=== PATIENT | male | born 1960 | race Caucasian/White ===

== ENCOUNTER 2017-07-30 17:12 | Emergency (ER) | payer BC ==
[2017-07-30 17:33] VITALS: BP 129/77
[2017-07-30] MEDS ORDERED: Sodium Chloride 0.9% 10 ML Syringe FLUSH PRN (17:55)
[2017-07-30 18:37] LABS: ANION GAP 11.8; CHLORIDE,CL 99 mmol/L (101-111); SODIUM,NA 133 mmol/L (135-145)
[2017-07-30] MEDS ORDERED: MVI, Adult with Vitamin K 10 ML, Folic Acid 1 MG, Thiamine 100 MG in Lactated Ringers 1... IV ONE ×4 (18:53)
--- NOTE | 2017-07-30 19:06 | EDM.PDOC ---
Scribed by Lilian Grey 07/30/17 1906 for Dewayne Nixon MD <Nora Cr - Last Filed: 07/30/17 20:19> ED HPI GENERAL MEDICAL PROBLEM - General Chief Complaint: Neurological Problem Stated Complaint: [id number], Time Seen by Provider: 07/30/17 17:30 - Related Data Allergies Allergy/AdvReac Type Severity Reaction Status Date / Time amoxicillin [Amoxicillin] Allergy Nausea and Verified 07/30/17 17:25 Vomiting Home Meds: Home Meds Multivitamin [Multi Vitamin Daily] 1 tab PO DAILY 06/28/13 [History] Aspirin [Patricia Chewable] 81 mg PO DAILY 10/30/14 [History] Course - Vital Signs Last Recorded V/S: Last Vital Signs Temp 36.2 C 07/30/17 17:25 Pulse 78 07/30/17 17:25 Resp 18 07/30/17 17:25 BP 129/77 07/30/17 17:25 Pulse Ox 97 07/30/17 17:25 Orthostatic Blood Pressure [ 109/76 Standing] Orthostatic Blood Pressure [ 123/78 Sitting] Orthostatic Blood Pressure [ 113/72 Supine] - Orders/Labs/Meds Labs: Laboratory Tests 07/30/17 07/30/17 07/30/17 Range/Units 18:02 18:02 18:05 WBC 8.2 (5.0-10.0) 10^3/uL RBC 4.62 (4.6-6.2) 10^6/uL Hgb 16.3 (14.0-18.0) g/dL Hct 47.1 (40.0-54.0) % MCV 101.9 H (80-100) fL MCH 35.3 H (27.0-34.0) pg MCHC 34.6 (33.0-35.0) g/dL Plt Count 229 (150-450) 10^3/uL Neut % (Auto) 58.3 (42.2-75.2) % Lymph % (Auto) 26.6 (20.5-50.1) % [place] % (Auto) 13.0 H (2-8) % Eos % (Auto) 1.9 (1.0-3.0) % Baso % (Auto) 0.2 (0.0-1.0) % PT (9.0-12.0) SEC INR (0.9-1.2) APTT (22.0-34.0) SEC Sodium (135-145) mmol/L Potassium (3.6-5.0) mmol/L Chloride (101-111) mmol/L Carbon Dioxide (21.0-31.0) mmol/L Anion Gap BUN (7-18) mg/dL Creatinine (0.6-1.3) mg/dL Est Cr Clr Drug Dosing mL/min Estimated GFR (MDRD) BUN/Creatinine Ratio Glucose (74-105) mg/dL Calcium (8.4-10.2) mg/dl Magnesium (1.8-2.5) mg/dL Total Bilirubin (0.2-1.0) mg/dL GGT (7-64) IU/L AST (10-42) IU/L ALT (10-60) IU/L Alkaline Phosphatase (42-121) IU/L Ammonia (11-35) umol/L Total Protein (6.7-8.2) g/dl Albumin (3.2-5.5) g/dl Globulin Albumin/Globulin Ratio TSH, Ultra Sensitive (0.45-5.33) uIu/mL Urine Color Yellow (YELLOW) Urine Appearance Clear (CLEAR) Urine pH 6.0 (5.0-9.0) Ur Specific [place] <= 1.005 (1.005-1.030) Urine Protein Negative (NEGATIVE) Urine Glucose (UA) Negative (NEGATIVE) Urine Ketones Negative (NEGATIVE) Urine Occult Blood Trace-intact H (NEGATIVE) Urine Nitrite Negative (NEGATIVE) Urine Bilirubin Negative (NEGATIVE) Urine Urobilinogen 0.2 (0.2-1.0) mg/dL Ur Leukocyte Esterase Negative (NEGATIVE) Urine RBC Not seen /HPF Urine WBC Not seen (0-5/HPF) /HPF Ur Epithelial Cells Rare /HPF Urine Bacteria Rare (0-FEW/HPF) /HPF Urine Opiates Screen Negative (NEGATIVE) Ur Oxycodone Screen Negative (NEGATIVE) Urine Methadone Screen Negative (NEGATIVE) Ur Barbiturates Screen Negative (NEGATIVE) U Tricyclic Antidepress Negative (NEGATIVE) Ur Phencyclidine Scrn Negative (NEGATIVE) Ur Amphetamine Screen Negative (NEGATIVE) U Methamphetamines Scrn Negative (NEGATIVE) Urine MDMA Screen Negative (NEGATIVE) U Benzodiazepines Scrn Negative (NEGATIVE) Urine Cocaine Screen Negative (NEGATIVE) U Marijuana (THC) Screen Negative (NEGATIVE) Ethyl Alcohol mg/dL 07/30/17 07/30/17 07/30/17 Range/Units 18:05 18:05 18:05 WBC (5.0-10.0) 10^3/uL RBC (4.6-6.2) 10^6/uL Hgb (14.0-18.0) g/dL Hct (40.0-54.0) % MCV (80-100) fL MCH (27.0-34.0) pg MCHC (33.0-35.0) g/dL Plt Count (150-450) 10^3/uL Neut % (Auto) (42.2-75.2) % Lymph % (Auto) (20.5-50.1) % [place] % (Auto) (2-8) % Eos % (Auto) (1.0-3.0) % Baso % (Auto) (0.0-1.0) % PT 9.4 (9.0-12.0) SEC INR 0.9 (0.9-1.2) APTT 27.8 (22.0-34.0) SEC Sodium 133 L (135-145) mmol/L Potassium 3.8 (3.6-5.0) mmol/L Chloride 99 L (101-111) mmol/L Carbon Dioxide 26.0 (21.0-31.0) mmol/L Anion Gap 11.8 BUN 11 (7-18) mg/dL Creatinine 0.8 (0.6-1.3) mg/dL Est Cr Clr Drug Dosing 109.13 mL/min Estimated GFR (MDRD) > 60 BUN/Creatinine Ratio 13.75 Glucose 71 L (74-105) mg/dL Calcium 8.7 (8.4-10.2) mg/dl Magnesium 2.1 (1.8-2.5) mg/dL Total Bilirubin 0.7 (0.2-1.0) mg/dL GGT 22 (7-64) IU/L AST 22 (10-42) IU/L ALT 21 (10-60) IU/L Alkaline Phosphatase 61 (42-121) IU/L Ammonia (11-35) umol/L Total Protein 7.8 (6.7-8.2) g/dl Albumin 4.0 (3.2-5.5) g/dl Globulin 3.8 Albumin/Globulin Ratio 1.05 TSH, Ultra Sensitive 1.21 (0.45-5.33) uIu/mL Urine Color (YELLOW) Urine Appearance (CLEAR) Urine pH (5.0-9.0) Ur Specific [place] (1.005-1.030) Urine Protein (NEGATIVE) Urine Glucose (UA) (NEGATIVE) Urine Ketones (NEGATIVE) Urine Occult Blood (NEGATIVE) Urine Nitrite (NEGATIVE) Urine Bilirubin (NEGATIVE) Urine Urobilinogen (0.2-1.0) mg/dL Ur Leukocyte Esterase (NEGATIVE) Urine RBC /HPF Urine WBC (0-5/HPF) /HPF Ur Epithelial Cells /HPF Urine Bacteria (0-FEW/HPF) /HPF Urine Opiates Screen (NEGATIVE) Ur Oxycodone Screen (NEGATIVE) Urine Methadone Screen (NEGATIVE) Ur Barbiturates Screen (NEGATIVE) U Tricyclic Antidepress (NEGATIVE) Ur Phencyclidine Scrn (NEGATIVE) Ur Amphetamine Screen (NEGATIVE) U Methamphetamines Scrn (NEGATIVE) Urine MDMA Screen (NEGATIVE) U Benzodiazepines Scrn (NEGATIVE) Urine Cocaine Screen (NEGATIVE) U Marijuana (THC) Screen (NEGATIVE) Ethyl Alcohol 207 mg/dL 07/30/17 Range/Units 18:05 WBC (5.0-10.0) 10^3/uL RBC (4.6-6.2) 10^6/uL Hgb (14.0-18.0) g/dL Hct (40.0-54.0) % MCV (80-100) fL MCH (27.0-34.0) pg MCHC (33.0-35.0) g/dL Plt Count (150-450) 10^3/uL Neut % (Auto) (42.2-75.2) % Lymph % (Auto) (20.5-50.1) % [place] % (Auto) (2-8) % Eos % (Auto) (1.0-3.0) % Baso % (Auto) (0.0-1.0) % PT (9.0-12.0) SEC INR (0.9-1.2) APTT (22.0-34.0) SEC Sodium (135-145) mmol/L Potassium (3.6-5.0) mmol/L Chloride (101-111) mmol/L Carbon Dioxide (21.0-31.0) mmol/L Anion Gap BUN (7-18) mg/dL Creatinine (0.6-1.3) mg/dL Est Cr Clr Drug Dosing mL/min Estimated GFR (MDRD) BUN/Creatinine Ratio Glucose (74-105) mg/dL Calcium (8.4-10.2) mg/dl Magnesium (1.8-2.5) mg/dL Total Bilirubin (0.2-1.0) mg/dL GGT (7-64) IU/L AST (10-42) IU/L ALT (10-60) IU/L Alkaline Phosphatase (42-121) IU/L Ammonia 10 L (11-35) umol/L Total Protein (6.7-8.2) g/dl Albumin (3.2-5.5) g/dl Globulin Albumin/Globulin Ratio TSH, Ultra Sensitive (0.45-5.33) uIu/mL Urine Color (YELLOW) Urine Appearance (CLEAR) Urine pH (5.0-9.0) Ur Specific [place] (1.005-1.030) Urine Protein (NEGATIVE) Urine Glucose (UA) (NEGATIVE) Urine Ketones (NEGATIVE) Urine Occult Blood (NEGATIVE) Urine Nitrite (NEGATIVE) Urine Bilirubin (NEGATIVE) Urine Urobilinogen (0.2-1.0) mg/dL Ur Leukocyte Esterase (NEGATIVE) Urine RBC /HPF Urine WBC (0-5/HPF) /HPF Ur Epithelial Cells /HPF Urine Bacteria (0-FEW/HPF) /HPF Urine Opiates Screen (NEGATIVE) Ur Oxycodone Screen (NEGATIVE) Urine Methadone Screen (NEGATIVE) Ur Barbiturates Screen (NEGATIVE) U Tricyclic Antidepress (NEGATIVE) Ur Phencyclidine Scrn (NEGATIVE) Ur Amphetamine Screen (NEGATIVE) U Methamphetamines Scrn (NEGATIVE) Urine MDMA Screen (NEGATIVE) U Benzodiazepines Scrn (NEGATIVE) Urine Cocaine Screen (NEGATIVE) U Marijuana (THC) Screen (NEGATIVE) Ethyl Alcohol mg/dL Meds: Medications Discontinued Medications Generic Name Dose Route Start Last Admin Trade Name Freq PRN Reason Stop Dose Admin Multivitamins/Minerals 10 ml/ 1,011.2 mls @ 999 mls/hr 07/30/17 18:53 19:29 Folic Acid 1 mg/ Thiamine HCl IV 07/30/17 19:53 999 mls/hr 100 mg/ Lactated Ringer's ONETIME ONE Administration Sodium Chloride 10 ml 07/30/17 17:55 07/30/17 18:16 Saline Flush FLUSH 10 ml ASDIRECTED PRN Administration Keep Vein Open - Radiology Interpretation Free Text/Narrative:: Head CT no acute intracranial process CXR: no active disease, mild fibrobullous lung disease - Re-Assessments/Exams Free Text/Narrative Re-Assessment/Exam: TC consult Dr. Cooley regarding patient, Recommend transfer to [facility] for further evaluation there with Neuro consult. Dr. Werner accepting of patient for further evaluation of vertigo, mild confusion and lightheadedness. Tx via ambulance Departure - Departure Time of Disposition: 20:19 Disposition: DC/Tfer to Acute Hospital 02 Condition: Undetermined Clinical Impression: Dizziness of unknown cause, Confusion Alcoholic intoxication Qualifiers: Complication of substance-induced condition: with unspecified complication Qualified Code(s): F10.929 - Alcohol use, unspecified with intoxication, unspecified - Discharge Information Referrals: PCP,None [Primary Care Provider] - Forms: ED Department Discharge <Dewayne Nixon - Last Filed: 08/02/17 08:03> ED HPI GENERAL MEDICAL PROBLEM - General Source of Information: Reports: Patient, RN, RN Notes Reviewed History Limitations: Reports: No Limitations - History of Present Illness INITIAL COMMENTS - FREE TEXT/NARRATIVE: Patient presented to ER with complaint of severe dizziness and mild confusion x1 week. Today he became so dizzy that he fell off his bar stool and could not get up without assistance. The barkeeper took him to the clinic, where he was diagnosed with vertigo. Patient feels that he was not evaluated thoroughly enough and is concerned that something more could be going on. Admits to drinking at least 6 beers a day for greater than 10 years and already drank 6 beers today as well. He denies any injury from the fall today. Patient reports his dizziness is both the sense of being off balance with room spin sensation and lightheaded as if he may faint. He also reports intermittently mild blurred vision. Denies any nausea or vomiting. Reports several days of decreased appetite for solid foods. Onset: Unknown/Unsure Duration: Getting Worse Quality: Reports: Other (feeling lightheaded.) Severity: Severe Improves with: Reports: None Worsens with: Reports: None Associated Symptoms: Reports: No Other Symptoms Neck Pain Score (Numeric/FACES): 7 Past Medical History Cardiovascular History: Reports: Hypertension Musculoskeletal History: Reports: Other (See Below) (necrotizing fascitis left arm.) - Past Surgical History Musculoskeletal Surgical History: Reports: Other (See Below) (left arm fasciulotomy.) Social & Family History - Family History Family Medical History: Noncontributory - Tobacco Use Smoking Status *Q: Current Every Day Smoker Years of Tobacco use: 20 Second Hand Smoke Exposure: Yes - Alcohol Use Days Per Week of Alcohol Use: 3 Number of Drinks Per Day: 4 Total Drinks Per Week: 12 - Recreational Drug Use Recreational Drug Use: No - Living Situation & Occupation Living situation: Reports: with Family Occupation: Employed ED ROS GENERAL - Review of Systems Review Of Systems: ROS reveals no pertinent complaints other than HPI. ED EXAM, DIZZINESS - Physical Exam Exam: See Below Exam Limited By: Intoxication General Appearance: Alert, No Apparent Distress, Other (chronically ill appearing) Eye Exam: Bilateral Eye: Normal Inspection (no nystagmus) Ears: Normal External Exam, Normal Canal, Hearing Grossly Normal, Normal TMs Nose: Normal Inspection, Normal Mucosa, No Blood Throat/Mouth: Normal Inspection, Normal Lips, Normal Oropharynx, Normal Voice, No Airway Compromise Head Exam: Atraumatic, Normocephalic Neck: Normal Inspection, Supple, Non-Tender, Full Range of Motion. No: Lymphadenopathy (L), Lymphadenopathy (R) Respiratory/Chest: No Respiratory Distress, Lungs Clear, No Accessory Muscle Use , Chest Non-Tender, Decreased Breath Sounds Cardiovascular: Regular Rate, Rhythm, No Edema, No Murmur GI/Abdominal: Normal Bowel Sounds, Soft, Non-Tender, No Distention, Pelvis Stable (Male) Exam: Deferred Rectal (Males) Exam: Deferred Neurological: Alert, Normal Mood/Affect, CN II-XII Intact, Normal Plantar Flexion, No Motor/Sensory Deficits, Other (oriented to person, place, and month , mild confusion, severe disequilibrium) Back Exam: Normal Inspection Extremities: Normal Inspection, Normal Range of Motion, Non-Tender, No Pedal Edema, Normal Capillary Refill Psychiatric: Normal Affect, Normal Mood Skin Exam: Warm, Dry, Intact, Normal Color, No Rash EKG INTERPRETATION EKG Date: 07/30/17 Time: 18:09 Rhythm: Other (SR) Rate (Beats/Min): 78 [place]: Normal P-Wave: Present QRS: Normal ST-T: Normal QT: Normal Comparison: NA - No Prior EKG Course - Vital Signs Last Recorded V/S: Last Vital Signs Temp 36.2 C 07/30/17 17:25 Pulse 78 07/30/17 17:25 Resp 18 07/30/17 17:25 BP 129/77 07/30/17 17:25 Pulse Ox 97 07/30/17 17:25 Orthostatic Blood Pressure [ 109/76 Standing] Orthostatic Blood Pressure [ 123/78 Sitting] Orthostatic Blood Pressure [ 113/72 Supine] - Orders/Labs/Meds Labs: Laboratory Tests 07/30/17 07/30/17 07/30/17 Range/Units 18:02 18:02 18:05 WBC 8.2 (5.0-10.0) 10^3/uL RBC 4.62 (4.6-6.2) 10^6/uL Hgb 16.3 (14.0-18.0) g/dL Hct 47.1 (40.0-54.0) % MCV 101.9 H (80-100) fL MCH 35.3 H (27.0-34.0) pg MCHC 34.6 (33.0-35.0) g/dL Plt Count 229 (150-450) 10^3/uL Neut % (Auto) 58.3 (42.2-75.2) % Lymph % (Auto) 26.6 (20.5-50.1) % [place] % (Auto) 13.0 H (2-8) % Eos % (Auto) 1.9 (1.0-3.0) % Baso % (Auto) 0.2 (0.0-1.0) % PT (9.0-12.0) SEC INR (0.9-1.2) APTT (22.0-34.0) SEC Sodium (135-145) mmol/L Potassium (3.6-5.0) mmol/L Chloride (101-111) mmol/L Carbon Dioxide (21.0-31.0) mmol/L Anion Gap BUN (7-18) mg/dL Creatinine (0.6-1.3) mg/dL Est Cr Clr Drug Dosing mL/min Estimated GFR (MDRD) BUN/Creatinine Ratio Glucose (74-105) mg/dL Calcium (8.4-10.2) mg/dl Magnesium (1.8-2.5) mg/dL Total Bilirubin (0.2-1.0) mg/dL GGT (7-64) IU/L AST (10-42) IU/L ALT (10-60) IU/L Alkaline Phosphatase (42-121) IU/L Ammonia (11-35) umol/L Total Protein (6.7-8.2) g/dl Albumin (3.2-5.5) g/dl Globulin Albumin/Globulin Ratio TSH, Ultra Sensitive (0.45-5.33) uIu/mL Urine Color Yellow (YELLOW) Urine Appearance Clear (CLEAR) Urine pH 6.0 (5.0-9.0) Ur Specific [place] <= 1.005 (1.005-1.030) Urine Protein Negative (NEGATIVE) Urine Glucose (UA) Negative (NEGATIVE) Urine Ketones Negative (NEGATIVE) Urine Occult Blood Trace-intact H (NEGATIVE) Urine Nitrite Negative (NEGATIVE) Urine Bilirubin Negative (NEGATIVE) Urine Urobilinogen 0.2 (0.2-1.0) mg/dL Ur Leukocyte Esterase Negative (NEGATIVE) Urine RBC Not seen /HPF Urine WBC Not seen (0-5/HPF) /HPF Ur Epithelial Cells Rare /HPF Urine Bacteria Rare (0-FEW/HPF) /HPF Urine Opiates Screen Negative (NEGATIVE) Ur Oxycodone Screen Negative (NEGATIVE) Urine Methadone Screen Negative (NEGATIVE) Ur Barbiturates Screen Negative (NEGATIVE) U Tricyclic Antidepress Negative (NEGATIVE) Ur Phencyclidine Scrn Negative (NEGATIVE) Ur Amphetamine Screen Negative (NEGATIVE) U Methamphetamines Scrn Negative (NEGATIVE) Urine MDMA Screen Negative (NEGATIVE) U Benzodiazepines Scrn Negative (NEGATIVE) Urine Cocaine Screen Negative (NEGATIVE) U Marijuana (THC) Screen Negative (NEGATIVE) Ethyl Alcohol mg/dL 07/30/17 07/30/17 07/30/17 Range/Units 18:05 18:05 18:05 WBC (5.0-10.0) 10^3/uL RBC (4.6-6.2) 10^6/uL Hgb (14.0-18.0) g/dL Hct (40.0-54.0) % MCV (80-100) fL MCH (27.0-34.0) pg MCHC (33.0-35.0) g/dL Plt Count (150-450) 10^3/uL Neut % (Auto) (42.2-75.2) % Lymph % (Auto) (20.5-50.1) % [place] % (Auto) (2-8) % Eos % (Auto) (1.0-3.0) % Baso % (Auto) (0.0-1.0) % PT 9.4 (9.0-12.0) SEC INR 0.9 (0.9-1.2) APTT 27.8 (22.0-34.0) SEC Sodium 133 L (135-145) mmol/L Potassium 3.8 (3.6-5.0) mmol/L Chloride 99 L (101-111) mmol/L Carbon Dioxide 26.0 (21.0-31.0) mmol/L Anion Gap 11.8 BUN 11 (7-18) mg/dL Creatinine 0.8 (0.6-1.3) mg/dL Est Cr Clr Drug Dosing 109.13 mL/min Estimated GFR (MDRD) > 60 BUN/Creatinine Ratio 13.75 Glucose 71 L (74-105) mg/dL Calcium 8.7 (8.4-10.2) mg/dl Magnesium 2.1 (1.8-2.5) mg/dL Total Bilirubin 0.7 (0.2-1.0) mg/dL GGT 22 (7-64) IU/L AST 22 (10-42) IU/L ALT 21 (10-60) IU/L Alkaline Phosphatase 61 (42-121) IU/L Ammonia (11-35) umol/L Total Protein 7.8 (6.7-8.2) g/dl Albumin 4.0 (3.2-5.5) g/dl Globulin 3.8 Albumin/Globulin Ratio 1.05 TSH, Ultra Sensitive 1.21 (0.45-5.33) uIu/mL Urine Color (YELLOW) Urine Appearance (CLEAR) Urine pH (5.0-9.0) Ur Specific [place] (1.005-1.030) Urine Protein (NEGATIVE) Urine Glucose (UA) (NEGATIVE) Urine Ketones (NEGATIVE) Urine Occult Blood (NEGATIVE) Urine Nitrite (NEGATIVE) Urine Bilirubin (NEGATIVE) Urine Urobilinogen (0.2-1.0) mg/dL Ur Leukocyte Esterase (NEGATIVE) Urine RBC /HPF Urine WBC (0-5/HPF) /HPF Ur Epithelial Cells /HPF Urine Bacteria (0-FEW/HPF) /HPF Urine Opiates Screen (NEGATIVE) Ur Oxycodone Screen (NEGATIVE) Urine Methadone Screen (NEGATIVE) Ur Barbiturates Screen (NEGATIVE) U Tricyclic Antidepress (NEGATIVE) Ur Phencyclidine Scrn (NEGATIVE) Ur Amphetamine Screen (NEGATIVE) U Methamphetamines Scrn (NEGATIVE) Urine MDMA Screen (NEGATIVE) U Benzodiazepines Scrn (NEGATIVE) Urine Cocaine Screen (NEGATIVE) U Marijuana (THC) Screen (NEGATIVE) Ethyl Alcohol 207 mg/dL 07/30/17 Range/Units 18:05 WBC (5.0-10.0) 10^3/uL RBC (4.6-6.2) 10^6/uL Hgb (14.0-18.0) g/dL Hct (40.0-54.0) % MCV (80-100) fL MCH (27.0-34.0) pg MCHC (33.0-35.0) g/dL Plt Count (150-450) 10^3/uL Neut % (Auto) (42.2-75.2) % Lymph % (Auto) (20.5-50.1) % [place] % (Auto) (2-8) % Eos % (Auto) (1.0-3.0) % Baso % (Auto) (0.0-1.0) % PT (9.0-12.0) SEC INR (0.9-1.2) APTT (22.0-34.0) SEC Sodium (135-145) mmol/L Potassium (3.6-5.0) mmol/L Chloride (101-111) mmol/L Carbon Dioxide (21.0-31.0) mmol/L Anion Gap BUN (7-18) mg/dL Creatinine (0.6-1.3) mg/dL Est Cr Clr Drug Dosing mL/min Estimated GFR (MDRD) BUN/Creatinine Ratio Glucose (74-105) mg/dL Calcium (8.4-10.2) mg/dl Magnesium (1.8-2.5) mg/dL Total Bilirubin (0.2-1.0) mg/dL GGT (7-64) IU/L AST (10-42) IU/L ALT (10-60) IU/L Alkaline Phosphatase (42-121) IU/L Ammonia 10 L (11-35) umol/L Total Protein (6.7-8.2) g/dl Albumin (3.2-5.5) g/dl Globulin Albumin/Globulin Ratio TSH, Ultra Sensitive (0.45-5.33) uIu/mL Urine Color (YELLOW) Urine Appearance (CLEAR) Urine pH (5.0-9.0) Ur Specific [place] (1.005-1.030) Urine Protein (NEGATIVE) Urine Glucose (UA) (NEGATIVE) Urine Ketones (NEGATIVE) Urine Occult Blood (NEGATIVE) Urine Nitrite (NEGATIVE) Urine Bilirubin (NEGATIVE) Urine Urobilinogen (0.2-1.0) mg/dL Ur Leukocyte Esterase (NEGATIVE) Urine RBC /HPF Urine WBC (0-5/HPF) /HPF Ur Epithelial Cells /HPF Urine Bacteria (0-FEW/HPF) /HPF Urine Opiates Screen (NEGATIVE) Ur Oxycodone Screen (NEGATIVE) Urine Methadone Screen (NEGATIVE) Ur Barbiturates Screen (NEGATIVE) U Tricyclic Antidepress (NEGATIVE) Ur Phencyclidine Scrn (NEGATIVE) Ur Amphetamine Screen (NEGATIVE) U Methamphetamines Scrn (NEGATIVE) Urine MDMA Screen (NEGATIVE) U Benzodiazepines Scrn (NEGATIVE) Urine Cocaine Screen (NEGATIVE) U Marijuana (THC) Screen (NEGATIVE) Ethyl Alcohol mg/dL Meds: Medications Discontinued Medications Generic Name Dose Route Start Last Admin Trade Name Freq PRN Reason Stop Dose Admin Multivitamins/Minerals 10 ml/ 1,011.2 mls @ 999 mls/hr 07/30/17 18:53 19:29 Folic Acid 1 mg/ Thiamine HCl IV 07/30/17 19:53 999 mls/hr 100 mg/ Lactated Ringer's ONETIME ONE Administration Sodium Chloride 10 ml 07/30/17 17:55 07/30/17 18:16 Saline Flush FLUSH 10 ml ASDIRECTED PRN Administration Keep Vein Open - Re-Assessments/Exams Free Text/Narrative Re-Assessment/Exam: 07/30/17 19:05 Care of pt transferred to [facility] at 1900HR shift change with lab and CT head results pending. I have read and agree with the documentation that has been completed regarding this visit. By signing this record, I attest that the documentation was completed in my physical presence and is an accurate record of the encounter.
--- NOTE | 2017-08-04 19:02 | EKG ---
07/30/2017 - LEO FRAGA I reviewed the EKG and agree with the machine's reading. [facility] /[id number]
== END 2017-07-30 20:50 ==
LOC: DL.ED 17:12
DX: F10.120 Alcohol abuse with intoxication, uncomplicated (principal); Y90.7 Blood alcohol level of 200-239 mg/100 ml; F17.200 Nicotine dependence, unspecified, uncomplicated; I10 Essential (primary) hypertension; Z88.1 Allergy status to other antibiotic agents; Z79.82 Long term (current) use of aspirin
CPT/HCPCS: 36415; 70450; 71045; 80053; 80305; 81001; 82140; 82607; 82746; 82977; 83735; 84443; 85025; 85610; 85730; 93005; 96360; 99285; G0480; J3411; J7050; J7120; J3490